=== PATIENT | female | born 1990 | race Caucasian/White ===

== ENCOUNTER 2017-05-28 19:52 | Emergency (ER) | payer MEDICAID, SELFPAY ==
[2017-05-28 19:53] VITALS: BP 144/91; PULSE 80; RESP 16; TEMP 36.6; O2SAT 100; BMI 31.1
--- NOTE | 2017-05-28 20:04 | ED.VISSUMM ---
- ER Visit Summary Date of Service: 05/28/17 Chief Complaint: Here chest pain since 12 noon worse with coughing History of Present Illness: The patient is a 27 F who is a non-smoker with history of asthma who has had a nonproductive cough for approximately 5 weeks. She was diagnosed with bronchitis. The onset of her illness she had an elevated d-dimer. A CTA of the chest was obtained which was negative. She then had noninvasive venous duplex studies of her lower extremities which were negative. She then presented to the emergency room and was diagnosed with bronchitis. She presents tonight because of the chest pain that is constant and worse with coughing. She denies fever, chills night sweats. Denies any ocular, visual or auditory symptoms. She denies any GI symptoms. She denies any leg pain, swelling discoloration. These read written note for complete detail. Physical Examination: Signs are remarkable for a blood pressure of 144/91. Vitals are otherwise unremarkable and she is PERC negative. Head is atraumatic normocephalic. Pupils are equal round reactive. Extraocular muscles are intact. TMs are pearly white with landmarks noted. Nares patent with no drainage. Posterior pharynx without erythema or exudate. Uvula is midline. There is no dysphonia or dysphasia. Trachea is midline. There is no stridor with auscultation of the neck. She has reproducible chest pain fourth fifth intercostal space. Heart is regular without murmur, gallop or rub. S1 and S2 are normal. Lungs are clear to auscultation with good movement of air bilaterally. There is no asymmetry, swelling, discoloration, leg vein distention, palpable cords or tenderness along the distribution of the deep venous system. Is no tenderness in the epigastrium and there is no hepatosplenomegaly. Negative Camargo sign. Test Results: None are indicated Emergency Department Course and Treatment: Anti-inflammatories since she has no contraindication patient was told why she has chest pain. Treatment Plan: anti-inflammatory medication Disposition: To home in stable condition Impression: Chest pain secondary to costochondritis This note was generated with [facility] dictation software. It may contain incorrect words, spelling, and punctuation that were not noted in review of the chart prior to signing ED Disposition - Plan for ED Patient: Disposition: Home or Assisted Living Chief Complaint: Chest Other Instructions: ED Chest Pain Costochondritis Referrals: Ephraim Cavanaugh DO [Primary Care Provider] - 1 Week if not improving Additional Instructions: Take either 4 Advil every 8 hours for the next 3-5 days, or take 2 Aleve every 12 hours for the next 3-5 days
[2017-05-28 20:13] VITALS: BP 138/69; PULSE 79; RESP 18; O2SAT 98
== END 2017-05-28 20:14 | disposition home or self-care (01) ==
PROVIDERS: Emergency Provider Emergency Medicine; Family Provider Student in an Organized Health Care Education/Training Program; PCP Student in an Organized Health Care Education/Training Program
DX: R07.89 Other chest pain (principal); M94.0 Chondrocostal junction syndrome [Tietze]; R05 Cough; R09.81 Nasal congestion; J45.909 Unspecified asthma, uncomplicated
CPT/HCPCS: 99283

== ENCOUNTER 2017-06-23 18:30 | Emergency (ER) | payer MEDICAID, SELFPAY ==
[2017-06-23 18:31] VITALS: BP 156/104; PULSE 114; RESP 16; TEMP 36.6; O2SAT 100; BMI 29.7
--- NOTE | 2017-06-23 18:51 | NURSING ---
BOOM CONVEYOR OPERATOR CALLED FOR EKG, PULLED OLD EKG'S FOR
--- NOTE | 2017-06-23 19:53 | ED.DCSUM_ITS ---
- ER Visit Summary Date of Service: 06/23/17 Chief Complaint: Instructed to go to the emergency room because of palpitations and rapid heart rate History of Present Illness: The patient is a 27 F who has history of panic attacks presents because of palpitations, shortness of breath, chest pain, bilateral paresthesia and perioral paresthesia. She was seen April 30 and had a significant workup which was unremarkable. She was recently started on Prozac for panic attacks. She did contact her PCP who recommended she come to the emergency room because her heart rate increased when she assessed her rate. This was associated with diaphoresis. Symptoms started after she drove her to the gym. She states these episodes have occurred since her had his procedure in April. Please read written note for complete detail Physical Examination: Patient's vital signs are marked for elevated blood pressure 136 and 104 and heart rate 114. She appears anxious. Head is atraumatic normocephalic. Pupils are equal round reactive. Extraocular muscles are intact. TMs are pearly white with landmarks noted. Nares patent with no drainage. Posterior pharynx without erythema or exudate. Uvula is midline. There is no dysphonia or dysphasia. Trachea is midline. There is no stridor with auscultation of the neck. Heart is regular without murmur, gallop or rub. S1 and S2 are normal. Lungs are clear to auscultation with good movement of air bilaterally. Neuro exam is nonfocal Test Results: No tests are indicated. Her nursing protocol and EKG was obtained which revealed a sinus tachycardia rate of 107. Emergency Department Course and Treatment: Patient's history and physical examination consistent with panic attack. Treatment Plan: Keep appointment with Dr. Cavanaugh tomorrow and therapist Disposition: Discharged to home Impression: Panic attack This note was generated with [employer] dictation software. It may contain incorrect words, spelling, and punctuation that were not noted in review of the chart prior to signing ED Disposition - Plan for ED Patient: Disposition: Home or Assisted Living Chief Complaint: Palpitations Instructions: ED Panic Attack Referrals: Ephraim Cavanaugh DO [Primary Care Provider] - Keep Ealre appointment
--- NOTE | 2017-06-23 20:00 | EKG12_ITS ---
Test Reason : PALPITATIONS Blood Pressure : / mmHG Vent. Rate : 107 BPM Atrial Rate : 107 BPM P-R Int : 150 ms QRS Dur : 068 ms QT Int : 312 ms P-R-T Axes : 074 067 057 degrees QTc Int : 416 ms Sinus tachycardia Biatrial enlargement Septal infarct , age undetermined Abnormal ECG Confirmed by SABRINA DAMIAN, SHANICE ([id number]), development editor FISH BERMUDEZ ([id number] on 06/26/2017 2:58:30 PM Referred By: AUTUMN Confirmed By:SHANICE BENNETT MD
[2017-06-23 20:11] VITALS: BP 128/84; PULSE 88; RESP 20; O2SAT 96
== END 2017-06-23 20:13 | disposition home or self-care (01) ==
LOC: ED 20:00
PROVIDERS: Emergency Provider Emergency Medicine; Family Provider Student in an Organized Health Care Education/Training Program; PCP Student in an Organized Health Care Education/Training Program
DX: F41.0 Panic disorder [episodic paroxysmal anxiety] (principal); E66.9 Obesity, unspecified; Z79.899 Other long term (current) drug therapy
CPT/HCPCS: 93005; 99282

== ENCOUNTER 2017-07-20 21:49 | Emergency (ER) | payer MEDICAID, SELFPAY ==
[2017-07-20 21:50] VITALS: BP 139/100; PULSE 86; RESP 20; TEMP 36.7; O2SAT 97; BMI 29.9
--- NOTE | 2017-07-20 22:00 | RAD_ITS ---
STUDY: X-RAY - SOFT TISSUE NECK REASON FOR EXAM: Female, 27 years old. Feels like something stuck in throat TECHNIQUE: 2 view(s) of the neck were obtained. COMPARISON: None. FINDINGS: Normal visualized nasopharynx, oropharynx, hypopharynx. Normal epiglottis. Normal visualized subglottic tracheal air column. Normal prevertebral soft tissue structures. Normal visualized osseous structures. The soft tissue structures are unremarkable. RAD/Neck for Soft Tissue IMPRESSION: Normal x-ray soft tissue neck. Electronically Signed: Leonardo Gomez MD at 22:17 EDT Tel , Service support ,
--- NOTE | 2017-07-20 22:02 | ED.DCSUM_ITS ---
- ER Visit Summary Date of Service: 07/20/17 Chief Complaint: Sore throat, foreign body sensation History of Present Illness: The patient is a 27 F resents to the emergency department with 24 hours of foreign body sensation in her throat. Patient states last night, she took some pills. She was taking a cranberry supplement because she has a urinary tract infection. She states it felt like it got stuck. Over the past 24 hours, she has had some increasing swelling in her throat. She is still able to eat and drink, but has had some increased swelling sensation. She has no trouble speaking or swallowing. She denies any fevers or chills. She denies any chest pain. Physical Examination: Exam is relatively unremarkable. The posterior oropharynx is widely patent. There is no trismus. There is no stridor. The submental space is soft. There is no fullness. There is no palpable thyroidomegaly. There is no lymphadenopathy or tenderness. There is no meningismus. Heart regular. Lungs clear. Test Results: [] Emergency Department Course and Treatment: I did obtain plain films of the lateral soft tissue neck. There is no swelling. There is no evidence of other dangerous process. I do feel this is likely irritation from swallowing the pills. The patient is drinking without issue. I will give her Decadron to help with the sensation of edema. She will be discharged home. Treatment Plan: [] Disposition: Discharge Impression: 1. Foreign body sensation of throat This note was generated with [employer] dictation software. It may contain incorrect words, spelling, and punctuation that were not noted in review of the chart prior to signing ED Disposition - Plan for ED Patient: Chief Complaint: Foreign Body Instructions: ED Foreign Body Swallowed Adult Referrals: Ephraim Cavanaugh DO [Primary Care Provider] -
[2017-07-20 22:38] VITALS: PULSE 84; RESP 14; O2SAT 97
== END 2017-07-20 22:39 | disposition home or self-care (01) ==
LOC: ED 22:34
PROVIDERS: Emergency Provider Emergency Medicine; Family Provider Student in an Organized Health Care Education/Training Program; PCP Student in an Organized Health Care Education/Training Program
DX: R09.89 Other specified symptoms and signs involving the circulatory and respiratory systems (principal); J02.9 Acute pharyngitis, unspecified
CPT/HCPCS: 70360; 99281

== ENCOUNTER → 2017-08-22 09:33 | Outpatient (CLI) | payer MEDICAID, SELFPAY | PROVIDERS: Family Provider Student in an Organized Health Care Education/Training Program; PCP Student in an Organized Health Care Education/Training Program; Visit Provider Nurse Practitioner Adult Health | DX: R00.2 Palpitations (principal) | CPT/HCPCS: 93225; 93226 ==

== ENCOUNTER 2017-08-27 14:45 | Emergency (ER) | payer MEDICAID, SELFPAY ==
[2017-08-27 14:46] VITALS: BP 136/99; PULSE 67; RESP 16; TEMP 36.6; O2SAT 100; BMI 29.7
[2017-08-27 15:32] VITALS: BP 127/90; BP 131/74; BP 144/82; PULSE 70; PULSE 71
--- NOTE | 2017-08-27 15:41 | ED.VISSUMM ---
- ER Visit Summary Date of Service: 08/27/17 Chief Complaint: Palpitations, lightheadedness and dizziness History of Present Illness: The patient is a 27 F who presents from home because of lightheadedness, palpitations and dizziness upon arising from sitting position. She initially thought this was secondary to the fact that she had not eaten. When she stood her symptoms got worse. She denied any fever, chills night sweats. She denies double vision, blurred vision loss of vision. She denies chest pain or tightness. She denies nausea, vomiting or diarrhea. She denies hematemesis, melena hematochezia. She has had URI symptoms with productive cough for the past 3-4 days. She is a non-smoker. She denies any leg pain, swelling discoloration. She has no history of DVT or PE. She denies any cardiac history. She is presently on her menstrual cycle. She is status post bilateral tubal ligation 3 and half years ago. She denies any urologic symptoms. Physical Examination: Vital signs are normal. Orthostatic vital signs are negative. Head is atraumatic normocephalic. Pupils are equal round reactive. Extraocular muscles are intact. TMs are pearly white with landmarks noted. Nares patent with no drainage. Posterior pharynx without erythema or exudate. Uvula is midline. There is no dysphonia or dysphasia. Trachea is midline. There is no stridor with auscultation of the neck. Heart is regular without murmur, gallop or rub. S1 and S2 are normal. Lungs are clear to auscultation with good movement of air bilaterally. Abdomen is soft nontender. Bowel sounds are present normal. Insert lower extremity DVT Patient is alert and oriented ?3. Motor is 5 over 5. Sensory is intact. DTRs are symmetric with no clonus or Babinski sign. Cranial 2 through 12 are intact. Cerebellar testing is normal. HINTS test, [place]-Hallpike test and eye askew test are all negative. Test Results: The static vital signs were obtained and negative. Emergency Department Course and Treatment: Patient had several visits for palpitations lightheadedness etc. She has had extensive workup in the past with no etiology determined. Treatment Plan: Follow-up with Dr. Cavanaugh as needed. Disposition: Discharged home Impression: Palpitations and lightheadedness of unknown etiology This note was generated with [employer] dictation software. It may contain incorrect words, spelling, and punctuation that were not noted in review of the chart prior to signing ED Disposition - Plan for ED Patient: Disposition: Home or Assisted Living Chief Complaint: Palpitations Instructions: ED Palpitations Referrals: Ephraim Cavanaugh DO [Primary Care Provider] - As Needed
--- NOTE | 2017-08-27 15:46 | ED.DCSUM_ITS ---
- ER Visit Summary Date of Service: 08/27/17 Chief Complaint: Palpitations, lightheadedness and dizziness History of Present Illness: The patient is a 27 F who presents from home because of lightheadedness, palpitations and dizziness upon arising from sitting position. She initially thought this was secondary to the fact that she had not eaten. When she stood her symptoms got worse. She denied any fever , chills night sweats. She denies double vision, blurred vision loss of vision. She denies chest pain or tightness. She denies nausea, vomiting or diarrhea. She denies hematemesis, melena hematochezia. She has had URI symptoms with productive cough for the past 3-4 days. She is a non-smoker. She denies any leg pain, swelling discoloration. She has no history of DVT or PE. She denies any cardiac history. She is presently on her menstrual cycle. She is status post bilateral tubal ligation 3 and half years ago. She denies any urologic symptoms. Physical Examination: Vital signs are normal. Orthostatic vital signs are negative. Head is atraumatic normocephalic. Pupils are equal round reactive. Extraocular muscles are intact. TMs are pearly white with landmarks noted. Nares patent with no drainage. Posterior pharynx without erythema or exudate. Uvula is midline. There is no dysphonia or dysphasia. Trachea is midline. There is no stridor with auscultation of the neck. Heart is regular without murmur, gallop or rub. S1 and S2 are normal. Lungs are clear to auscultation with good movement of air bilaterally. Abdomen is soft nontender. Bowel sounds are present normal. Insert lower extremity DVT Patient is alert and oriented ?3. Motor is 5 over 5. Sensory is intact. DTRs are symmetric with no clonus or Babinski sign. Cranial 2 through 12 are intact. Cerebellar testing is normal. HINTS test, [place]-Hallpike test and eye askew test are all negative. Test Results: The static vital signs were obtained and negative. Emergency Department Course and Treatment: Patient had several visits for palpitations lightheadedness etc. She has had extensive workup in the past with no etiology determined. Treatment Plan: Follow-up with Dr. Cavanaugh as needed. Disposition: Discharged home Impression: Palpitations and lightheadedness of unknown etiology This note was generated with [employer] dictation software. It may contain incorrect words, spelling, and punctuation that were not noted in review of the chart prior to signing ED Disposition - Plan for ED Patient: Disposition: Home or Assisted Living Chief Complaint: Palpitations Instructions: ED Palpitations Referrals: Ephraim Cavanaugh DO [Primary Care Provider] - As Needed
[2017-08-27 15:51] VITALS: BP 128/78; PULSE 70; RESP 14; O2SAT 100
== END 2017-08-27 15:52 | disposition home or self-care (01) ==
PROVIDERS: Emergency Provider Emergency Medicine; Family Provider Student in an Organized Health Care Education/Training Program; PCP Student in an Organized Health Care Education/Training Program
DX: R00.2 Palpitations (principal); R42 Dizziness and giddiness; J34.89 Other specified disorders of nose and nasal sinuses; J02.9 Acute pharyngitis, unspecified; R06.00 Dyspnea, unspecified; R05 Cough; R53.1 Weakness; Z98.51 Tubal ligation status
CPT/HCPCS: 99285

== ENCOUNTER 2017-12-18 19:10 | Emergency (ER) | payer MEDICAID, SELFPAY ==
[2017-12-18 19:11] VITALS: BP 130/82; PULSE 79; RESP 18; TEMP 36.7; O2SAT 100; BMI 29.5
--- NOTE | 2017-12-18 20:02 | ED.VISSUMM ---
- ER Visit Summary Date of Service: 12/18/17 Chief Complaint: abdominal pain History of Present Illness: The patient is a 27 F who presents for 2 days of abdominal pain. Patient states pain is localized in the mid upper abdomen and radiates around the left side into her back. It also feels like it goes straight through into her back. It is burning, sharp and stabbing. It is worse if she is sitting down, tolerable if she lays down with a pillow propping up her left side, and improved with standing. She has associated nausea but no vomiting or diarrhea. No fever, chest pain, shortness of breath. She does have decreased p.o. intake today. No urinary symptoms. She was seen at urgent care yesterday but told the could not do a full evaluation due to limitations of their facility. Patient denies any alcohol use. No drug use. History of GERD and asthma. History of delivery and bilateral tubal ligation. Physical Examination: Vital signs: afebrile, hemodynamically stable, no hypoxia on room air General: well nourished, well developed, in no distress, standing for comfort Skin: warm, dry, no rash, no pallor HEENT: normocephalic and atraumatic; PERRL, EOMI, moist mucous membranes Cardiovascular: regular rate and rhythm without murmurs, no peripheral edema, 2+ pulses all distal extremities Respiratory: No increased work of breathing, lungs are clear to auscultation bilaterally, no rales, rhonchi or wheezing Abdominal: Abdomen is soft, left upper quadrant is tender with normoactive bowel sounds, no guarding or rebound, no masses, no CVA tenderness MSK: Moves all extremities, no deformities, normal strength Neuro: Awake and alert, oriented ?4. No facial droop, sensation and motor function intact and symmetric Test Results: Abnormal Lab Results 12/18/17 12/18/17 12/18/17 20:12 20:12 20:12 WBC 10.0 RBC 4.56 Hgb 13.5 Hct 41.4 MCV 90.8 MCH 29.6 MCHC 32.6 RDW 13.2 RDW Differential 43.7 Plt Count 328 MPV 9.9 Immature Gran % (Auto) 0.200 Neut % (Auto) 62.1 Lymph % (Auto) 28.4 [place] % (Auto) 7.8 Eos % (Auto) 1.2 Baso % (Auto) 0.3 Absolute Neuts (auto) 6.2 Absolute Lymphs (auto) 2.83 Total Counted Not Reportable Sodium 140 Potassium 3.6 Chloride 105 Carbon Dioxide 27.0 Anion Gap 8 BUN 10 Creatinine 0.74 Estim Creat Clear Calc 111.05 Est GFR (MDRD) Af Amer 120 Est GFR (MDRD) Non-Af 99 BUN/Creatinine Ratio 13.5 Glucose 95 Lactic Acid 0.9 Calcium 9.1 Total Bilirubin 0.30 AST 37 ALT 72 H Alkaline Phosphatase 188 H Total Protein 8.4 H Albumin 4.0 Globulin 4.4 H Albumin/Globulin Ratio 0.9 Lipase 120 Urine Color Urine Clarity Urine pH Ur Specific [place] Urine Protein Urine Glucose (UA) Urine Ketones Urine Occult Blood Urine Nitrite Urine Bilirubin Urine Urobilinogen Ur Leukocyte Esterase Urine RBC Urine WBC Ur Squamous Epith Cells Urine Bacteria Urine Mucus Urine Test 12/18/17 12/18/17 20:20 20:20 WBC RBC Hgb Hct MCV MCH MCHC RDW RDW Differential Plt Count MPV Immature Gran % (Auto) Neut % (Auto) Lymph % (Auto) [place] % (Auto) Eos % (Auto) Baso % (Auto) Absolute Neuts (auto) Absolute Lymphs (auto) Total Counted Sodium Potassium Chloride Carbon Dioxide Anion Gap BUN Creatinine Estim Creat Clear Calc Est GFR (MDRD) Af Amer Est GFR (MDRD) Non-Af BUN/Creatinine Ratio Glucose Lactic Acid Calcium Total Bilirubin AST ALT Alkaline Phosphatase Total Protein Albumin Globulin Albumin/Globulin Ratio Lipase Urine Color Yellow Urine Clarity Clear Urine pH 7.0 Ur Specific [place] 1.015 Urine Protein 15 H Urine Glucose (UA) Normal Urine Ketones Negative Urine Occult Blood Negative Urine Nitrite Negative Urine Bilirubin Negative Urine Urobilinogen Normal Ur Leukocyte Esterase 25 H Urine RBC 0 SEEN Urine WBC 0-5 SEEN Ur Squamous Epith Cells 5-10 SEEN Urine Bacteria RARE Urine Mucus 2+ Urine Test Negative Clinical Impression(s) from Imaging Studies Abdomen/Pelvis CT 12/18/17 20:01 IMPRESSION: No CT evidence of acute intra-abdominal disease. Electronically Signed: Mami Alejo MD at 22:46 EDT , Service support , Medications Given Discontinued Medications Sodium Chloride () 1,000 mls @ 1,000 mls/hr IV .Q1H ONE Stop: 12/18/17 21:00 Last Admin: 12/18/17 20:22 Dose: 1,000 mls/hr Emergency Department Course and Treatment: Patient was offered and declined pain or nausea medications. She was given IV fluids for hydration. CBC, BMP were unremarkable. Lipase was normal at 120. Mild elevation of alk phos at 188. Mild elevation of AST at 72. Urine was negative for infection. Lactate normal at 0.9. negative. CT of the abdomen and pelvis with p.o. and IV contrast was performed, and showed no acute process to explain patient's symptoms. Bases of the lungs were also clear and showed no infiltrates or effusions. On reevaluation, patient was sitting in bed and appeared comfortable. She continued to decline any medication. She has a follow-up appointment scheduled already with her primary care provider's office and will keep this appointment for another evaluation. Patient is going to use [id number] pain medication as needed. She was discharged home. Treatment Plan: [] Disposition: [] Impression: Abdominal pain and female This note was generated with [employer] dictation software. It may contain incorrect words, spelling, and punctuation that were not noted in review of the chart prior to signing ED Disposition - Plan for ED Patient: Disposition: Home or Assisted Living Chief Complaint: Abd Pain Instructions: ED Abdominal Pain Unkn Cause Referrals: Ephraim Cavanaugh DO [Primary Care Provider] - Keep [facility] appointment Additional Instructions: Your workup did not show a definite cause for your abdominal pain. There was no sign of bowel obstruction, infection or other acute process that would require admission, antibiotics or surgery. Please follow-up with your primary care provider as scheduled for another evaluation. Use [id number] pain medication as needed for pain. If you notice a rash develop on the left side of your abdomen and back, see your doctor as soon as possible for another evaluation or return to the emergency department or in urgent care. If you have any worsening of your condition or any new concerning symptoms, please return immediately to the emergency department for another evaluation.
[2017-12-18] MEDS: 0.9% Normal Saline 1,000 ML 1000 ML IV (20:22)
[2017-12-18 20:27] LABS: Absolute Lymphocyte Count 2.83 X10^3/ul (0.83-4.51); Absolute Neutrophil Count 6.2 X10^3/uL (2.0-7.7); Basophil# 0.03 X10^3/uL; Basophil% 0.3 % (0-1); Eosinophil# 0.12 X10^3/uL; Eosinophils% 1.2 % (0-5); Hematocrit 41.4 % (37-47); Hemoglobin 13.5 g/dl (12.0-15.0); Lymphocyte # 2.83 X10^3/ul (4.0); Lymphocyte % 28.4 % (19-41); Mean Corp Hgb Conc 32.6 g/gl (32-36); Mean Corpuscular Hgb 29.6 pg (27.0-32.0); Mean Corpuscular Volume 90.8 fL (81-99); Mean Platelet Vol. 9.9 fl (6.2-12.0); Monocyte# 0.78 X10^3/uL; Monocyte% 7.8 % (0-10); Neutrophil # 6.18 X10^3/uL (2.7-7.7); Neutrophil % 62.1 % (47-70); Platelet Count 328 K/mm3 (150-450); RBC Distribution Width CV 13.2 % (11.6-14.6); RBC Distribution Width SD 43.7 fl (35.1-43.9); Red Blood Count 4.56 M/mm3 (4.2-5.4)
[2017-12-18 20:28] LABS: POSITIVE COUNT NO; POSITIVE DIFFERENTIAL NO; POSITIVE MORPHOLOGY NO
[2017-12-18 20:30] LABS: Red Blood Cells-Urine 0 SEEN /hpf (0-5)
[2017-12-18 20:39] LABS: Internal QC Validated? YES +Cl - CLEAR BKGD; Pregnancy, Urine Negative Negative
[2017-12-18 20:44] LABS: Color, Urine Yellow (Yellow); Glucose, Dipstick Normal (Normal); Ketone-Dipstick Negative (Negative); Leukocyte Esterase-Dipstick 25 /ul (Negative); Nitrite-Dipstick Negative (Negative); Occult Blood-Urine Negative /ul (Negative); Protein-Dipstick 15 mg/dl (Negative); Specific Gravity, Urine 1.015 (1.002-1.030); Urine Bilirubin Dipstick Negative (Negative); Urine Clarity Clear (Clear); Urine Urobilinogen Normal (Normal)
[2017-12-18 20:51] LABS: ALB/GLOB Ratio 0.9 RATIO (0.9-2.4); AST(SGOT) 37 U/L (15-37); Alanine Aminotransfer ALT/SGPT 72 U/L (13-56); Alkaline Phosphatase 188 U/L (45-117); Anion Gap 8 (5-15); BUN 10 mg/dL (7-18); BUN/Creat Ratio 13.5 RATIO (10-20); Calcium,Total 9.1 mg/dL (8.5-10.1); Chloride 105 mmol/L (98-107); Creatinine, Serum 0.74 mg/dL (0.55-1.02); EST Glomerular Filtration Rate 99 mL/min (>60); Est Glom Filt Rate - Afr Amer 120 mL/min (>60); Estimated Creatinine Clearance 111.05 ml/min; Globulin 4.4 g/dL (2.2-4.2); Glucose 95 mg/dL (74-106); Lactic Acid 0.9 mmol/L (0.4-2.0); Lipase 120 U/L (73-393); Potassium 3.6 mmol/L (3.5-5.1); Protein, Total 8.4 g/dL (6.4-8.2); Sodium Level 140 mmol/L (136-145)
[2017-12-18 20:57] LABS: Squamous Epithelial Cells - UA 5-10 SEEN /hpf (5-10); White Blood Cells 0-5 SEEN /hpf (0-5)
[2017-12-18 20:58] LABS: Bacteria RARE /hpf (None Seen); Mucous, Urine 2+ /hpf (<or=2+)
[2017-12-18 21:50] VITALS: BP 139/76; PULSE 79; RESP 17; O2SAT 99
--- NOTE | 2017-12-18 23:27 | ED.DEP ---
ED Disposition - Plan for ED Patient: Disposition: Home or Assisted Living Chief Complaint: Abd Pain Instructions: ED Abdominal Pain Unkn Cause Referrals: Ephraim Cavanaugh DO [Primary Care Provider] - Keep Ear[place] appointment Additional Instructions: Your workup did not show a definite cause for your abdominal pain. There was no sign of bowel obstruction, infection or other acute process that would require admission, antibiotics or surgery. Please follow-up with your primary care provider as scheduled for another evaluation. Use [id number] pain medication as needed for pain. If you notice a rash develop on the left side of your abdomen and back, see your doctor as soon as possible for another evaluation or return to the emergency department or in urgent care. If you have any worsening of your condition or any new concerning symptoms, please return immediately to the emergency department for another evaluation.
[2017-12-18 23:36] VITALS: BP 123/75; PULSE 68; RESP 15; O2SAT 100
== END 2017-12-18 23:37 | disposition home or self-care (01) ==
PROVIDERS: Emergency Provider Emergency Medicine; Family Provider Student in an Organized Health Care Education/Training Program; PCP Student in an Organized Health Care Education/Training Program
DX: R10.12 Left upper quadrant pain (principal); R11.0 Nausea; M54.9 Dorsalgia, unspecified; K21.9 Gastro-esophageal reflux disease without esophagitis; J45.909 Unspecified asthma, uncomplicated; Z98.51 Tubal ligation status
CPT/HCPCS: 74177; 80053; 81001; 81025; 83605; 83690; 85025; 96360; 96361; 99283; Q9967; A4216

== ENCOUNTER 2018-04-25 20:59 | Emergency (ER) | payer MEDICAID, SELFPAY ==
[2018-04-25 21:01] VITALS: BP 146/92; PULSE 89; RESP 17; TEMP 36.2; O2SAT 98; BMI 31.8
--- NOTE | 2018-04-25 21:41 | CT_ITS ---
STUDY: CT ABDOMEN AND PELVIS WITHOUT CONTRAST REASON FOR EXAM: Female, 28 years old. Upper abdominal pain and nausea. Elevated white blood count. RADIATION DOSAGE (If Supplied By Facility): CTDIvol = ( 12.84 ) mGy, DLP = ( 651.32 ) mGycm TECHNIQUE: Transaxial images were obtained from the dome of the diaphragm to the symphysis pubis without oral contrast, and without intravenous contrast. Sagittal and coronal images were reconstructed. Individualized dose optimization techniques were used for this CT. COMPARISON: December 18, 2017. FINDINGS: The visualized lung bases are unremarkable. The visualized portions of the heart are within normal limits. Normal liver. Normal gallbladder and extrahepatic biliary system. Normal spleen. Normal pancreas. Normal bilateral adrenal glands. Normal right kidney. Normal left kidney. Normal visualized stomach. Normal small intestine. Normal colon. The appendix is well visualized and appears normal. Normal abdominal aorta. Normal inferior vena cava. Normal retroperitoneum. No intra-abdominal free air. Normal urinary bladder. Uterus grossly normal. No adnexal masses seen. Normal abdominal wall. L5-S1 disc space narrowing with marginal osteophytes. CT/Abdomen/Pelvis without Cont IMPRESSION: Normal unenhanced CT of the abdomen and pelvis. No evidence of bowel obstruction. Normal appendix. Electronically Signed: Jj Shepherd MD at 0:26 EST , Service support ,
[2018-04-25] MEDS: 0.9% Normal Saline 1,000 ML 125 ML IV (23:07)
[2018-04-25] MEDS: Mag Hydrox/Al Hydrox/Simeth 30 ML UDC PO (23:07)
[2018-04-25 23:22] LABS: Absolute Lymphocyte Count 3.21 X10^3/ul (0.83-4.51); Absolute Neutrophil Count 6.8 X10^3/uL (2.0-7.7); Basophil# 0.03 X10^3/uL; Basophil% 0.3 % (0-1); Eosinophil# 0.42 X10^3/uL; Eosinophils% 3.8 % (0-5); Hematocrit 40.6 % (37-47); Hemoglobin 13.7 g/dl (12.0-15.0); Lymphocyte # 3.21 X10^3/ul (4.0); Lymphocyte % 28.7 % (19-41); Mean Corp Hgb Conc 33.7 g/gl (32-36); Mean Platelet Vol. 9.9 fl (6.2-12.0); Monocyte# 0.71 X10^3/uL; Monocyte% 6.4 % (0-10); Neutrophil # 6.78 X10^3/uL (2.7-7.7); Neutrophil % 60.5 % (47-70); Platelet Count 272 K/mm3 (150-450); RBC Distribution Width CV 12.9 % (11.6-14.6); RBC Distribution Width SD 41.6 fl (35.1-43.9); Red Blood Count 4.56 M/mm3 (4.2-5.4); White Blood Count 11.2 K/mm3 (4.4-11.0)
[2018-04-25 23:23] LABS: ALB/GLOB Ratio 0.9 RATIO (0.9-2.4); AST(SGOT) 18 U/L (15-37); Alanine Aminotransfer ALT/SGPT 35 U/L (13-56); Albumin, Serum 3.9 g/dL (3.2-5.0); Alkaline Phosphatase 170 U/L (45-117); Anion Gap 8 (5-15); BUN 11 mg/dL (7-18); BUN/Creat Ratio 15.1 RATIO (10-20); Calcium,Total 8.7 mg/dL (8.5-10.1); Chloride 107 mmol/L (98-107); Creatinine, Serum 0.73 mg/dL (0.55-1.02); EST Glomerular Filtration Rate 101 mL/min (>60); Est Glom Filt Rate - Afr Amer 122 mL/min (>60); Estimated Creatinine Clearance 111.57 ml/min; Globulin 4.3 g/dL (2.2-4.2); Glucose 87 mg/dL (74-106); Lipase 102 U/L (73-393); POSITIVE COUNT NO; POSITIVE DIFFERENTIAL NO; POSITIVE MORPHOLOGY NO; Potassium 4.2 mmol/L (3.5-5.1); Protein, Total 8.2 g/dL (6.4-8.2); Sodium Level 138 mmol/L (136-145)
[2018-04-25 23:46] LABS: Pregnancy, Serum, hCG Quali. NEGATIVE Negative (0-9 Nonpreg)
--- NOTE | 2018-04-25 23:50 | ED.DCSUM_ITS ---
- ER Visit Summary Date of Service: 04/25/18 Chief Complaint: [Abdominal pain] History of Present Illness: The patient is a 28 F [presents to the emergency department complaint of abdominal pain that started earlier today. Patient states pain is continuous but waxes and wanes in intensity. Patient feels like the pain is in the upper abdomen radiating down towards her bellybutton. Patient did have one episode of diarrhea this morning but none since. She denies any fever. Patient states food seems to make the pain worse and for about an hour after she eats she has a lot of discomfort. Patient denies any blood in her stool or black tarry stool. She denies any bloody vomitus. Patient denies urinary symptoms. Patient's last menstrual period was March 23. Patient has had a tubal ligation and prior . Patient does have a history of ovarian cyst.] Physical Examination: [HEENT-PERRLA, EOMI. Cranial nerves II through XII grossly intact. TMs clear. Mucous membranes moist. No adenopathy. Cardiovascular-regular rate and rhythm without murmur or ectopy Lungs-clear to auscultation, chest wall stable without crepitus or subcu emphysema Abdomen-normoactive bowel sounds, soft. Patient has tenderness palpation over the epigastric region. Negative Camargo sign. Patient does have some tenderness over McBurney's with some mild guarding. There is no rebound, rigidity, or perineal signs. Negative Rovsing sign. Extremities-intact ?4, normal range of motion, normal pulses, atraumatic] Test Results: [CBC with differential obtained showed white blood cell count of 11.2, hemoglobin 13.7, hematocrit 41, platelets 272. Chemistries were normal. LFTs were unremarkable. HCG is pending. CT scan of the abdomen pelvis ordered and pending.] Emergency Department Course and Treatment: [Patient denies anything for pain however she did agree to try a GI cocktail however this did not seem to help her discomfort.] Treatment Plan: [Care of patient turned over to evening physician awaiting CT result final disposition] Disposition: [Pending] Impression: [Abdominal pain] This note was generated with [employer] dictation software. It may contain incorrect words, spelling, and punctuation that were not noted in review of the chart prior to signing ED Disposition - Plan for ED Patient: Chief Complaint: Abd Pain Referrals: Ephraim Cavanaugh DO [Primary Care Provider] -
[2018-04-26 00:17] LABS: Red Blood Cells-Urine 0 SEEN /hpf (0-5)
[2018-04-26 00:22] LABS: Color, Urine Yellow (Yellow); Glucose, Dipstick Normal (Normal); Ketone-Dipstick Negative (Negative); Leukocyte Esterase-Dipstick 500 /ul (Negative); Nitrite-Dipstick Negative (Negative); Occult Blood-Urine Negative /ul (Negative); Protein-Dipstick Negative (Negative); Urine Bilirubin Dipstick Negative (Negative); Urine Clarity Sl. Cloudy (Clear); Urine Urobilinogen Normal (Normal)
[2018-04-26 00:31] LABS: White Blood Cells 10-25 SEEN /hpf (0-5)
[2018-04-26 00:32] LABS: Bacteria 2+ /hpf (None Seen); Mucous, Urine 2+ /hpf (<or=2+); Squamous Epithelial Cells - UA 0-5 SEEN /hpf (5-10)
--- NOTE | 2018-04-26 01:21 | DCINST.ED_ITS ---
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 Use Zofran as needed for nausea and [id number] medications as needed for stomach upset. If you have any worsening of your condition or any new concerning symptoms, please return immediately to the emergency department for another evaluation.
[2018-04-26 01:29] VITALS: BP 131/91; PULSE 82; RESP 14; O2SAT 99
== END 2018-04-26 01:30 | disposition home or self-care (01) ==
PROVIDERS: Emergency Provider Emergency Medicine; Family Provider Student in an Organized Health Care Education/Training Program; PCP Student in an Organized Health Care Education/Training Program
DX: N39.0 Urinary tract infection, site not specified (principal); R10.13 Epigastric pain; R10.33 Periumbilical pain; R19.7 Diarrhea, unspecified; N83.202 Unspecified ovarian cyst, left side; J45.909 Unspecified asthma, uncomplicated
CPT/HCPCS: 74176; 80053; 81001; 83690; 84703; 85025; 96360; 96361; 99285; A4216

== ENCOUNTER 2019-05-07 15:45 | Emergency (ER) | payer MEDICAID, SELFPAY ==
[2019-05-07 15:46] VITALS: BP 137/79; PULSE 114; RESP 18; TEMP 37.8; O2SAT 99; BMI 28.1
--- NOTE | 2019-05-07 16:09 | ED.DCSUM_ITS ---
- ER Visit Summary Date of Service: 05/07/19 Chief Complaint: Fever with nausea, vomiting and diarrhea History of Present Illness: The patient is a 29 F past medical history of asthma and anxiety. Patient states since Monday she had a low-grade fever 100 203. Associated nausea vomiting diarrhea. Nausea vomiting resolved yesterday. She still has some loose stools. No dysuria. No abdominal pain. No cough, chest pain or shortness of breath. No dysuria. Physical Examination: Young female no acute distress vital signs are stable temperature 100.1. Pulse ox 90% room air no signs hypoxia. HEENT exam normal. TMs normal. Posterior pharynx normal. Moist mucous membranes. Neck nontender. No lymphadenopathy. No meningismus. Able to touch chin to chest. Lungs clear to auscultation bilaterally. Equal symmetrical. Heart tachycardic rate about 110 no murmur. Abdomen soft nontender normal bowel sounds no peritoneal signs. Both the right upper and right lower quadrant completely nontender. Patient is moving all 4 extremities. Neurovascularly intact. No swelling. No tenderness. Back nontender. No CVA tenderness. Skin normal no rashes. Neurologically she is awake and alert. Test Results: None Emergency Department Course and Treatment: Patient's history and exam are consistent with a viral syndrome. Most likely viral gastroenteritis. Treatment Plan: Fluids and rest. Alternate Tylenol Motrin for fever. Given first dose of Tylenol here. Zofran as needed for nausea. Follow-up if not improving or return if worse. Disposition: Discharge Impression: Acute viral syndrome (viral gastroenteritis) This note was generated with [employer] dictation software. It may contain incorrect words, spelling, and punctuation that were not noted in review of the chart prior to signing ED Disposition - Plan for ED Patient: Referrals: Ephraim Cavanaugh DO [Primary Care Provider] -
--- NOTE | 2019-05-07 16:11 | ED.DEP ---
ED Disposition - Plan for ED Patient: Disposition: Home or Assisted Living Instructions: GASTROENTERITIS, Viral (6y-Adult) Prescriptions: Ondansetron [Zofran Odt] 4 mg PO Q8H PRN PRN #7 tab PRN Reason: Nausea Prescription Printed Referrals: Ephraim Cavanaugh DO [Primary Care Provider] - 3-5 Days if not improving Additional Instructions: Alternate Tylenol and/or Motrin for fever. Zofran for nausea as needed. Plenty of fluids and rest. Follow-up with your doctor if not improving or return to ER if feeling worse.
[2019-05-07] MEDS: Acetaminophen 500 MG Tablet 1000 MG PO (16:17)
== END 2019-05-07 16:19 | disposition home or self-care (01) ==
LOC: ED 16:15
PROVIDERS: Emergency Provider Emergency Medicine; PCP Student in an Organized Health Care Education/Training Program
DX: A08.4 Viral intestinal infection, unspecified (principal); F41.9 Anxiety disorder, unspecified; J45.909 Unspecified asthma, uncomplicated
CPT/HCPCS: 99283

== ENCOUNTER 2019-11-12 04:38 | Emergency (ER) | payer MEDICAID, SELFPAY ==
[2019-11-12 04:39] VITALS: BP 140/78; PULSE 75; RESP 18; TEMP 36.8; O2SAT 100; BMI 28.6
--- NOTE | 2019-11-12 04:48 | RAD_ITS ---
STUDY: X-RAY - LEFT WRIST REASON FOR EXAM: Female, 29 years old. Pain distal radius after injury 11/11/2019. TECHNIQUE: 3 view(s) of the wrist were obtained. COMPARISON: None. FINDINGS: Normal visualized distal radius and ulna. Normal radiocarpal articulation. Normal distal radioulnar articulation. Normal carpal bones. Normal carpal articulations. Normal carpometacarpal articulation of the thumb. Normal second through fifth carpometacarpal articulations. Normal visualized metacarpal bones. The soft tissue structures are unremarkable. RAD/Wrist min 3 Views IMPRESSION: Normal x-ray examination of the wrist. Electronically Signed: Jj Shepherd MD at 5:31 EDT , Service support ,
--- NOTE | 2019-11-12 04:50 | ED.VIS.GEN ---
History of Present Illness Chief Complaint: Upper Extremity Injury Detail of Chief Complaint: Left wrist pain Informant: Patient Onset: Yesterday Context: Gradual Onset Current Severity: Moderate Maximum Severity: Moderate Narrative: Patient presents secondary to left wrist pain. Patient states around 1 PM yesterday afternoon at work she picked up something and felt a pop in her left wrist. She did not think much of it at the time but as the day progressed pain continued to worsen. She denies paresthesias. She is right-hand dominant. - Past Medical History (1) Asthma Status: Chronic (2) GERD (gastroesophageal reflux disease) Status: Chronic (3) Anxiety Status: Chronic Past Medical History - Allergies and Home Meds Allergies/Adverse Reactions: Allergies blueberry [Blueberry] Allergy (Mild, Verified 11/12/19 04:43) Shortness of breath nickel [Nickel] Allergy (Mild, Verified 11/12/19 04:43) Rash montelukast [From Singulair] Allergy (Verified 11/12/19 04:43) Hives Primary Care Physician: Ephraim Cavanaugh DO [Primary Care Provider] - Lives: With Family Smoking Status: Never smoker Review of Systems General: Denies: Chills, Fever Eyes: Denies: Visual changes - bilaterally ENT: Denies: Bilateral ear pain Cardiovascular: Denies: Chest pain Respiratory: Denies: Dyspnea, Cough Gastrointestinal: Denies: Abdominal pain, Nausea, Vomiting, Diarrhea Genitourinary: Denies: Dysuria Musculoskeletal: Reports: Extremity Pain Skin: Denies: Rash Neurological: Denies: Weakness, Parasthesia Hematologic: Denies: Easy bruising, Easy bleeding Allergy: Denies: Uticaria Physical Exam Vital Signs/Narrative: Vital Signs Temp Pulse Resp BP Pulse Ox 11/12/19 04:39 98.2 F 75 18 140/78 H 100 Inital Vital Signs reviewed: Yes General: Well nourished, Well developed Head: Normocephalic ENT: Moist mucous membranes Neck: Supple Cardiovascular: Regular rate, Regular rhythm Respiratory: No distress Extremities: Tenderness - Focal tenderness along the left distal radius. No significant edema or overlying erythema. No tenderness over the hand. Good cap refill and strong hand grasp. No tenderness at the elbow or shoulder. Skin: Normal color Neurological: Alert, Oriented x3 Psychological: Normal affect Diagnostic/Tx/Re-eval Left wrist x-rays per my review are unremarkable. No bony injury. - Medical Decision Making Patient was given naproxen here. Velcro wrist splint will be applied. She did fill out paperwork for workers comp. ED Disposition - Plan for ED Patient: Disposition: Home or Assisted Living Diagnosis: Left wrist sprain Instructions: ED Sprain Wrist Prescriptions: Naproxen [Naprosyn] 500 mg PO BID PRN PRN #20 tab PRN Reason: Pain Score 4-10/10 Transmission Status: Pending to [id number] Referrals: [facility] [GROUP OF PHYSICIANS] - 3-5 Days
[2019-11-12] MEDS: Naproxen 500 MG Tablet PO (05:02)
== END 2019-11-12 05:51 | disposition home or self-care (01) ==
PROVIDERS: Emergency Provider Emergency Medicine; PCP Student in an Organized Health Care Education/Training Program
DX: S63.502A Unspecified sprain of left wrist, initial encounter (principal); X58.XXXA Exposure to other specified factors, initial encounter; Y93.9 Activity, unspecified; Y92.9 Unspecified place or not applicable; J45.909 Unspecified asthma, uncomplicated
CPT/HCPCS: 73110; 99283